=== PATIENT | male | born 1940 | race Caucasian/White ===

== ENCOUNTER → 2021-07-16 07:40 | Outpatient (CLI) | payer MEDICARE, SELFPAY ==
--- NOTE | 2021-07-16 07:42 | DI.NM.S_ITS ---
PROCEDURE: ND BONE SCAN WHOLE BODY RADIOPHARMACEUTICAL: 20.7 mCi Tc-99m MDP IV. INDICATIONS: prostate cancer TECHNIQUE: Delayed whole-body scintigrams were obtained approximately 3-4 hours after intravenous injection of radiotracer. Anterior and posterior views were acquired from vertex to feet. Additional left and right oblique views of the pelvis were obtained. COMPARISON: [facility], [place], [place] BONE SCAN WHOLE BODY, 01/15/2015, 13:24. FINDINGS: No areas of abnormal radiotracer uptake identified that be suspicious for osseous metastatic disease. No areas of photopenia identified in the osseous skeleton. Increased radiotracer uptake identified in the shoulders bilaterally, the knees bilaterally, the ankles bilaterally, the mid feet bilaterally in the 1st MTP joints of the feet bilaterally compatible with osteoarthritis. No abnormal soft tissue uptake. Activity in the kidneys is normal and symmetric. IMPRESSION: No scintigraphic evidence of osseous metastatic disease. Dictated by: Regina Washington MD, PhD on 07/16/2021 at 11:59 Approved by: Regina Washington MD, PhD on 07/16/2021 at 12:01
== END ==
PROVIDERS: PCP Family Medicine; Referring Provider Specialist; Visit Provider Specialist
DX: C61 Malignant neoplasm of prostate (principal)
CPT/HCPCS: 78306; A9503

== ENCOUNTER 2022-01-11 09:48 | Day surgery (SDC) | payer MEDICARE, SELFPAY ==
[2022-01-11] VITALS (7 sets, daily range): BP systolic 124–155; BP diastolic 63–86; PULSE 58–64; RESP 13–18; TEMP 36.3–36.6; O2SAT 95–98; BMI 26.9
--- NOTE | 2022-01-11 | PATH_ITS ---
[facility] Accession Number: [id number] . 01 Material submitted: . bladder - BLADDER NECK/TRIGON . 01 Clinical history: . A) HX OF BLADDER CANCER . 01 Diagnosis: Bladder Neck / Trigone, Transurethral Resection of Bladder Tumor: Positive for prostatic adenocarcinoma by immunohistochemistry studies. Please see comment. Please see Cancer Case Summary. . . CANCER CASE SUMMARY Specimen: Transurethral resection of bladder. . Tumor Histologic type: Acinar adenocarcinoma. Histologic grade: Remsen score 4+5=9/10 (grade group 5). Percentage of pattern 4: Greater than 90%. Intraductal carcinoma: Not identified. Cribriform glands: Present. Treatment effect: Not identified. . Tumor quantitation Tumor quantitation estimated percentage of biopsy involved by tumor: 71-80%. Lymphovascular involvement: not identified. Perineural invasion: not identified. . Additional findings: Focal comedonecrosis present. MRV 01/15/2022 1549 Local . 01 Comment: As part of ongoing air quality specialist, this case is also reviewed by Dr. Florence Worley, who concurs with the given interpretation. . Voicemail message left on [facility] urology clinic phone to convey results to Dr. Jackman's care team on 01-15-22 at approximately 1:40 p.m. . 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 . 01 Electronically signed: . Kayley Canseco MD, Pathologist NPI- [id number] . 01 Gross description: . BLADDER NECK/TRIGON: Received in formalin are multiple fragment(s) of brooks, soft tissue measuring 2.3 x 1.5 x 0.1 cm in aggregate submitted entirely in 1 cassette(s) /CPE 01/12/2022 0917 Local . 01 Microscopic: . An immunohistochemistry panel is performed to further evaluate the cells of interest. The control stains show appropriate reactivity. . RESULTS: Block A1 CK7: Negative. CK20: Negative. P63: Negative. DAMIEN-3: Negative. CK5/6: Negative. PAX8: Negative. AMACR: Positive. PSA: Positive. SMA: Patchy positivity. Chromogranin: Negative. Synaptophysin: Positive. . The tumor is positive for AMACR and PSA, and is negative for markers CK7, CK20, p63, CK5/6, p40, and GATA3. These findings support an interpretation of prostatic adenocarcinoma. Markers for urothelial and renal cell carcinoma are negative. Synaptophysin positivity demonstrates neuroendocrine differentiation in a setting of high grade prostatic adenocarcinoma. . * This test was developed and its performance characteristics determined by [employer]. It has not been cleared or approved by the U.S. Food and Drug Administration. The FDA has determined that such clearance or approval is not necessary. This test is used for clinical purposes. It should not be regarded as investigational or for research. . 01 Pathologist provided ICD-10: C61 . 01 CPT . 611527, C75711 Specimen Comment: A courtesy copy of this report has been sent to [phone] Performed at: 01 [facility] [address] [place] [address] [address] [facility], [place], [place] [id number] MD Cayetano Montez MD Phone: [phone]
[2022-01-11] MEDS: LACTATED RINGERS 1,000 ML 21 ML IV (10:23)
[2022-01-11 10:47] LABS: COVID19 -Nasal RAPID Negative (Negative)
--- NOTE | 2022-01-11 11:04 | PM.PREOP ---
Pre-operative Note COVID-19 Criteria for continued procedure: Expected advancement of disease process, Possibility delay results in more complex future surgery or treatment, Deterioration of the patient's condition or overall health, Delay expected to result in less-positive ultimate med/surg outcome and Non-surgical alternatives not available or appropriate per current SOC Interval Note History & Physical reviewed/Exam performed by Physician: Yes Changes to H&P: No
[2022-01-11] MEDS: CEFAZOLIN 2 GM/100 ML PREMIX 100 ML IV (13:50)
[2022-01-11] MEDS: ACETAMINOPHEN IV 1,000 MG/100 ML VIAL 400 MG IV (13:59)
--- NOTE | 2022-01-11 14:08 | SUR.OPER ---
Lithotomy on padded OR bed, head on pillow, arms secured on padded arm boards at <90 degrees abduction. Legs secured in padded yellow fins stirrups.
--- NOTE | 2022-01-11 14:31 | P.OP_ITS ---
Operative Date/Time/Diagnoses Date of procedure: 01/11/22 Time of procedure: 14:32 Pre-op diagnosis: 1. Bladder neoplasm of uncertain behavior. 2. History recurrent prostate cancer. Post-op diagnosis: same Procedure & Clinicians Procedure: 1. Transurethral resection of bladder tumor (2-5 cm). Same procedure as scheduled: Yes Indications: 1. Bladder neoplasm of uncertain behavior (midline trigone). 2. History of recurrent prostate cancer. Surgeon: Lorri Jackman Click Yes if Unassisted: Yes Anesthesia Type: General Operative Notes Findings: 1. Intact artificial urinary sphincter. The device was near completely emptied and deactivated prior to instrumentation. The device was reactivated following instrumentation. 2. Urethra-normal caliber except for circumferential slight narrowing at site of AUS sphincter. Urothelium intact. 3. External sphincter-partially gaping. 4. Prostate-surgically absent. 5. Bladder-bladder neck is patent, widely open. Ureteral orifices are seen bilaterally and documented pre and post resection with intraoperative photographs. There is a nodular, vascular midline neoplasm line at the distal trigone roughly equal distant from each of the ureteral orifices. It extends distally to an area near the bladder neck. Closure Type: not applicable Specimen(s): other (Resected bladder tumor.) Estimated Blood Loss (mL): 1 Blood products transfused: none Procedure in detail: The patient was positioned supine was administered general anesthesia. He was then repositioned in semi lithotomy and the lower abdomen, genitalia, and groin were then prepped and draped in sterile fashion. The artificial urinary sphincter was completely emptied and allowed to fill small degree before the deactivation button was engaged, leaving a generous dimple within the pump bulb. The 22 [place] panendoscope was then advanced lower urinary tract with the findings as described above. The bladder was then partially filled in the panendoscope was removed. Next, the resectoscope was advanced under direct visualization into the bladder. The working element was then fitted with a resection loop. Intraoperative photographs were obtained prior to resection. The visible neoplasm was resected to a plane just deep to that of the remaining bladder contour. It was evident that there was deeper neoplasm within and among the smooth muscle fibers of the trigone and bladder base. All resected tissue was gathered and submitted to pathology for routine gross and microscopic examination. The resection bed and margins were then cauterized for hemostasis. Post resection photographs were obtained demonstrating the resection bed as well as the intact ureteral orifices bilaterally. The bladder was then drained completely and the resectoscope was removed. The artificial urinary sphincter was then reactivated. The patient was then repositioned in supine, was awakened, transferred to [facility], and then transported recovery in stable condition. Complications: none Post-operative Condition: stable Disposition: PACU Plan for aftercare: Discharge home
== END 2022-01-11 15:34 | disposition home or self-care (01) ==
PROVIDERS: PCP Family Medicine; Referring Provider Specialist; Visit Provider Specialist
PROC: 0TBC8ZZ Excision of Bladder Neck, Via Natural or Artificial Opening Endoscopic (ICD-10-PCS; CPT 52500; principal; 2022-01-11 11:15)
DX: C61 Malignant neoplasm of prostate (principal); Z20.822 Contact with and (suspected) exposure to COVID-19
CPT/HCPCS: 52235; 87635; J0131; J0690; J1100; J2405; J2704; J3010

== ENCOUNTER → 2022-03-25 14:36 | Outpatient (CLI) | payer MEDICARE, SELFPAY | PROVIDERS: PCP Family Medicine; Referring Provider Specialist; Visit Provider Specialist | DX: C61 Malignant neoplasm of prostate (principal); M81.8 Other osteoporosis without current pathological fracture; T38.7X5A Adverse effect of androgens and anabolic congeners, initial encounter; R97.21 Rising PSA following treatment for malignant neoplasm of prostate; Z13.820 Encounter for screening for osteoporosis | CPT/HCPCS: 77080 ==